=== PATIENT | male | born 1980 | race Caucasian/White ===

== ENCOUNTER → 2017-01-02 | Outpatient (CLI) | payer OTHER ==
--- NOTE | 2017-01-02 15:24 | CT ---
EXAMINATION TYPE: CT lumbar spine wo con DATE OF EXAM: 01/02/2017 COMPARISON: NONE HISTORY: left sided low back and leg pain CT DLP: 1044 mGycm Automated exposure control for dose reduction was used. FINDINGS: There are 5 lumbar-type vertebra identified. There is a additional transitional L6 type vertebra note d. Lumbar spine show straightening alignment without evidence of acute fracture or dislocation. Verte bral body heights are maintained. There is mild to moderate disc space narrowing most prominent anter iorly L4-L5 level. There is prominent posterior disc herniation L5- L6 level on sagittal images. Review of axial images shows the T12-L1, L1-L2, L2-L3, and L3-L4 levels to appear within normal limit s. Axial images at L4-L5 level show broad disc bulge mildly effacing anterior thecal sac on axial image 53, bilateral neural foramina are patent. Axial images at L5-L6 level show larger left paracentral disc protrusion effacing anterolateral theca l sac seen on axial images 61 through 64. Bilateral neural foramina are patent. Axial images at L6-S1 level are felt within normal limits. Distended bladder is present. Normal-appearing appendix is incidentally seen from cecum. IMPRESSION: SOME DEGENERATIVE CHANGE IN LOWER LUMBAR SPINE DETAILED ABOVE. MOST PROMINENT DISC HERNIATION L5- L6 LEVEL IS NOTED.
== END ==
LOC: RADCTMAIN 14:59
PROVIDERS: ATTEND Physical Medicine & Rehabilitation
DX: M51.16 Intervertebral disc disorders with radiculopathy, lumbar region (principal); M47.26 Other spondylosis with radiculopathy, lumbar region
CPT/HCPCS: 72131

== ENCOUNTER → 2017-01-03 | Outpatient (CLI) | payer OTHER ==
[2017-01-03 15:10] LABS: EKG EKG PERFORMED
--- NOTE | 2017-01-03 15:50 | XR ---
EXAMINATION TYPE: XR chest 2V DATE OF EXAM: 01/03/2017 COMPARISON: NONE HISTORY: Presurgical study. TECHNIQUE: Frontal and lateral views of the chest are obtained. FINDINGS: There is no focal air space opacity, pleural effusion, or pneumothorax seen. The cardiac silhouette size is within normal limits. The osseous structures are intact. IMPRESSION: No acute cardiopulmonary process.
[2017-01-03 15:52] LABS: Anion Gap 12 mmol/L; Blood Urea Nitrogen 16 mg/dL (9-20); Calcium 9.9 mg/dL (8.4-10.2); Carbon Dioxide 28 mmol/L (22-30); Chloride 100 mmol/L (98-107); Glucose 92 mg/dL (74-99); INR 1.1 (<1.2); Non-African American GFR(MDRD) >60 (>60 ml/min/1.73 sqM); Partial Thromboplastin Time 25.6 sec (22.0-30.0); Potassium 4.6 mmol/L (3.5-5.1); Prothrombin Time 10.7 sec (9.0-12.0); Sodium 140 mmol/L (137-145)
[2017-01-03 15:55] LABS: Basophils # (A) 0.1 k/uL (0-0.2); Basophils % (A) 1 %; CH 30.4; CHCM 34.3; Eosinophils # (A) 0.1 k/uL (0-0.7); Eosinophils % (A) 1 %; HCT 46.9 % (39.0-53.0); HDW 2.78; HGB 15.4 gm/dL (13.0-17.5); Luc # (Auto) 0.13; Luc % (Auto) 1; Lymphocytes # (A) 2.1 k/uL (1.0-4.8); Lymphocytes % (A) 23 %; MCH 29.2 pg (25.0-35.0); MCHC 32.8 g/dL (31.0-37.0); MCV 88.9 fL (80.0-100.0); Mean Platelet Volume 6.3; Monocytes # (A) 0.6 k/uL (0-1.0); Monocytes % (A) 6 %; Neutrophils # (A) 6.1 k/uL (1.3-7.7); Neutrophils % (A) 68 %; RBC 5.27 m/uL (4.30-5.90); RDW 12.8 % (11.5-15.5); WBC 9.1 k/uL (3.8-10.6); WBC (Perox) 9.71
[2017-01-03 15:59] LABS: Appearance,Urine Clear (Clear); Bilirubin,Urine Negative (Negative); Glucose,Urine (UA) Negative (Negative); Ketones,Urine Negative (Negative); Leukocyte Esterase,Urine Negative (Negative); Nitrite,Urine Negative (Negative); PH, Urine 6.5 (5.0-8.0); Protein,Urine Negative (Negative); Specific Gravity,Urine 1.008 (1.001-1.035); UA Billing (MACRO vs. MICRO) CHEM; Urobilinogen,Urine <2.0 mg/dL (<2.0)
== END | disposition home or self-care (01) ==
LOC: LABPAT 14:57
PROVIDERS: ATTEND Orthopaedic Surgery Orthopaedic Surgery of the Spine
DX: Z01.810 Encounter for preprocedural cardiovascular examination (principal); M51.26 Other intervertebral disc displacement, lumbar region; Z01.812 Encounter for preprocedural laboratory examination
CPT/HCPCS: 36415; 71020; 80048; 81003; 85025; 85610; 85730; 93005

== ENCOUNTER 2017-01-11 10:32 | Observation (INO) | payer OTHER ==
[2017-01-04 15:32] VITALS: BMI 31.8
[~2017-01-11 10:32] MED LIST: BACITRACIN 50,000 UNIT, POLYMYXIN B 500,000 UNIT in SODIUM CHLORIDE 0.9% IRRIGATIO 1,00... IRRIGATION ONE; LIDOCAINE 1% 20 ML VIAL (10MG/ML) FOR IV START INTRADERMA PRN; ONDANSETRON 4 MG/2 ML VIAL IVP ONE; SCOPOLAMINE 1.5MG/72HR PATCH TRANSDERM ONE; ceFAZolin 2 GM in SODIUM CHLORIDE 0.9% 100 ML IVPB ONE
[2017-01-11] MEDS: LACTATED RINGERS 1,000 ML IV SCH (11:50)
[2017-01-11] MEDS ORDERED: MIDAZOLAM 2 MG/2 ML VIAL IV ONE (11:54)
[2017-01-11] MEDS ORDERED: PROPOFOL 10 MG/ML 20 ML VIAL IV ONE (12:10)
[2017-01-11] MEDS ORDERED: LIDOCAINE 1% INJ 10MG/ML (20 ML MDV) SQ ONE (12:10)
[2017-01-11] MEDS ORDERED: SUCCINYLCHOLINE CHLORIDE VIAL 200 MG/10 ML VIAL IV ONE (12:10)
[2017-01-11] MEDS ORDERED: GLYCOPYRROLATE 0.2 MG/ML 2 ML VIAL ONE (12:10)
[2017-01-11] MEDS ORDERED: MIDAZOLAM 2 MG/2 ML VIAL ONE (12:10)
[2017-01-11] MEDS ORDERED: GELATIN SPONGE,ABSORB (LARGE) 1 EACH SPONGE TOPICAL ONE (12:10)
[2017-01-11] MEDS ORDERED: THROMBIN (BOVINE) 5,000 UNIT VIAL TOPICAL ONE (12:10)
[2017-01-11] MEDS ORDERED: fentaNYL (PF) 50 MCG/ML 2 ML AMP ONE (12:10)
[2017-01-11] MEDS ORDERED: LIDOCAINE 1% INJ 10MG/ML (20 ML MDV) ONE (12:10)
[2017-01-11] MEDS ORDERED: BUPIVACAINE (PF) 0.25% 30 ML VIAL SQ ONE (12:10)
[2017-01-11] MEDS ORDERED: methylPREDNISolone ACETATE 40 MG/ML 1 ML VIAL MISCELLANE ONE (12:10)
--- NOTE | 2017-01-11 13:04 | XR ---
EXAMINATION TYPE: XR lumbar spine 1V, FL guidance operating room DATE OF EXAM: 01/11/2017 CLINICAL HISTORY: Back pain and laminectomy TECHNIQUE: Fluoroscopy. COMPARISON: None. FINDINGS/IMPRESSION: Fluoroscopic guidance was provided during procedure performed by Dr. Ray. A total of 3 seconds of fluoroscopic time was utilized during the procedure and 1 spot images was acqui red demonstrating a surgical tool overlying the soft tissues of the lumbosacral spine.
[2017-01-11] MEDS ORDERED: LACTATED RINGERS 1,000 ML IV ONE (13:14)
--- NOTE | 2017-01-11 13:30 | P.OP ---
Date of Procedure: 01/11/17 Preoperative Diagnosis: L4 5 large herniated nucleus pulposis with left lower extremity radiculopathy and weakness Degenerative disc disease Postoperative Diagnosis: Same Anesthesia: GETA Pathology: none sent Condition: stable Disposition: PACU Description of Procedure: BRIEF OPERATIVE NOTE Preoperative Diagnosis: Large disc herniation L4 5, left lower extremity radiculopathy and weakness, degenerative disc disease Postoperative Diagnosis: Same Procedure: Laminectomy and decompression with partial facetectomy and foraminotomy L4 5 Discectomy for decompression L4 5 Surgeon: Dr. Uribe Electrical Continuity Tester: Evangelista PULIDO who is present throughout the entire the case persistence during positioning, dissection, exposure, visualization, and all crucial elements of the case as well as closure. Anesthesia: General anesthesia Estimated blood loss: Approximately 50 mL Complications: None apparent Components implanted: None Disposition: To recovery room in good stable condition. OPERATIVE INDICATIONS The patient has been having issues in their lower back and lower extremities. The patient was having severe pain with severe debility. He was unable to work on the unable to lay down in bed. He was sleeping sitting up in a chair and great difficulty with any walking more than a few steps. His found to have a massive disc herniation at L4 5 which correlated well with his pain. The disc herniation was seen on computed tomography scan she is unable to even lay down for an MRI. The patient was having worsening debility despite conservative treatment. The patient has been through conservative treatment. We discussed various treatment options including surgery, and the patient wishes to proceed with surgery We discussed the risk, patient's alternatives and benefits of surgery including but not limited to, risk of bleeding risk of infection, risk of need for further surgery, risk of decreased, loss of motion, loss of function , nerve damage, paralysis, heart attack, blindness and . OPERATIVE SUMMARY After discussing all the risks, patient alternatives and benefits at length, the patient elected to proceed with surgical intervention, signed informed consent, and presented for their procedure. The patient was seen and examined in the preoperative holding area and the surgical site was marked. The patient was given antibiotics and brought to the operating room. The patient was sedated and intubated by anesthesia in standard fashion. The patient was positioned on to the operating room table in a prone position on the appropriate frame which was well-padded and well molded. We were careful to pad any bony prominences and pressure points. We were careful to maintain the patient's cervical spine and good neutral alignment and position throughout. The patient was prepped and draped in a normal standard fashion. An appropriate timeout and keystone protocol performed. We were able to proceed with the surgery. Fluoroscopy was utilized to establish the appropriate level at L4 5. The local wound area was infiltrated with local anesthetic. An incision was made at the midline longitudinally over the appropriate levels at L4 5. Dissection was taken down subcutaneously to the level of the fascia which was split midline. Dissection was taken over the lamina. Intraoperative fluoroscopy was taken which showed a marker at the appropriate level. With the appropriate level positively confirmed, we were able to proceed with laminectomy. The wound was copiously irrigated and suctioned dry as had been done periodically throughout the case. I performed a laminectomy at L4 5 on the left with a combination of curettes and a high-speed bur and Kerrison rongeurs. A small medial facetectomy was performed again further access. A partial foraminotomy was also performed. Portions of the ligamentum flavum were taken down to expose the dura and traversing nerve root. I was able to mobilize the traversing nerve root and gain access to the disc space. Note was made of obvious compression from the disc. The disc herniation appeared to be quite large and causing severe distortion of the traversing nerve root and thecal sac. Protecting the soft tissue structures, a small annulotomy was established. I was able to perform discectomy and remove any extruded disc fragments and any loose fragments from within the disc itself. There was a massive extruded disc herniation which was removed giving excellent decompression from the disc. There are number of small fragments that were extruded that was removed as well. There is some significant disc desiccation noted. I tried to preserve the disc annulus that appeared stable. There were no further extruded fragments noted. There is no evidence of dural tear or leak. Good hemostasis maintained. The wound was copiously irrigated and suctioned dry. Good decompression and discectomy was noted. We were able to proceed with closure. The fascia was closed for a watertight closure. The subcuticular tissue was closed with absorbable suture. The wound was cleaned and dried and dressed with the appropriate dressing. The drapes were broken down. The patient was gently rolled back onto their hospital bed being careful to maintain their cervical spine and good neutral alignment and position. They were woken up by anesthesia, extubated, and brought to the recovery room in good stable condition. The patient will be admitted to the hospital for observation and for appropriate postoperative care, medical management and monitoring. We will continue to follow them closely about the postoperative course.
[2017-01-11] MEDS ORDERED: HYDROcodone/APAP 5-325MG 1 EACH TAB PO PRN ×2 (13:31)
[2017-01-11] MEDS ORDERED: DIAZEPAM 5 MG TAB PO PRN (13:31)
[2017-01-11] MEDS ORDERED: BENZOCAINE/MENTHOL LOZENG 1 EACH LOZENGE MUCOUS MEM PRN (13:31)
[2017-01-11] MEDS ORDERED: HYDROmorphone 0.5 MG/0.5 ML SYRINGE IVP PRN (13:31)
[2017-01-11] MEDS ORDERED: ONDANSETRON 4 MG/2 ML VIAL IVP ONE (14:00)
[2017-01-11] MEDS: HYDROmorphone 0.5 MG/0.5 ML SYRINGE IVP PRN ×4 (14:05→15:00)
[2017-01-11] MEDS: HYDROmorphone 1 MG/ML 1 ML SYRINGE IVP PRN ×2 (17:11→21:32)
[2017-01-11] MEDS: IBUPROFEN 800 MG TAB PO SCH ×2 (17:20→23:26)
[2017-01-11] MEDS: SODIUM CHLORIDE 0.9% 1,000 ML IV SCH (17:48)
[2017-01-11] MEDS: HYDROcodone/APAP 7.5-325MG 1 EACH TAB PO PRN (18:54)
[2017-01-11] MEDS: ceFAZolin 2 GM in SODIUM CHLORIDE 0.9% 100 ML IVPB SCH (20:18)
[2017-01-12] MEDS: HYDROcodone/APAP 7.5-325MG 1 EACH TAB PO PRN ×2 (00:02→05:16)
[2017-01-12] MEDS: HYDROmorphone 1 MG/ML 1 ML SYRINGE IVP PRN ×2 (01:37→07:02)
[2017-01-12] MEDS: SODIUM CHLORIDE 0.9% 1,000 ML IV SCH (05:15)
[2017-01-12] MEDS: ceFAZolin 2 GM in SODIUM CHLORIDE 0.9% 100 ML IVPB SCH (05:16)
[2017-01-12] MEDS: LACTATED RINGERS 1,000 ML IV SCH (05:16)
[2017-01-12] MEDS ORDERED: SENNOSIDES-DOCUSATE SODIUM 1 EACH TAB PO SCH (09:00)
[2017-01-12 09:05] VITALS: RESP 18; TEMP 98.1
[2017-01-12] MEDS: IBUPROFEN 800 MG TAB PO SCH (09:35)
--- NOTE | 2017-01-12 10:27 | P.DS ---
Providers Date of admission: 01/12/17 03:21 Attending physician: Yeny Uribe Primary care physician: Stated None Hospital Course: The patient presented on the day of admission as per his operative note. He underwent laminectomy and discectomy at L4 4 5 for a massive disc herniation. He feels that his legs are doing better. He is quite apprehensive about trying to mobilize or get out of bed. He did not try to get out of bed on his own last night. He says his pain is adequately controlled. Physical Exam The incision site is clean dry and intact. There is no erythema no drainage. There is no purulence no evidence of infection. There is no drainage at all on the dressing and the back appears clear Abdomen soft and nontender. Chest has good excursion with deep inspiration and expiration. The patient has active and passive range of motion intact at the upper and lower extremities. There is no acute change in neurologic status. His swelling at his lower extremities has diminished with him laying flat in bed overnight. He has good sustained dorsal flexion plantar flexion and extensor hallucis longus Hospital Course The patient has been very apprehensive about trying to move. Today at bedside with the assistance of the nursing staff we are able to get him up out of bed standing and walking over to sit in the chair. He is quite surprised that he was able to do this but he did this without too much trouble. He still remains apprehensive apprehensive about trying to mobilize but I think he will continue to increase the morning in the day. Once he is able to mobilize independently I think it is okay for him be discharged home today. He has been able to urinate on his own and he has been able to tolerate his regular diet and his pain is adequately controlled. The patient has been making slow progress postoperatively in terms of his mobility but I think that this will start to improve now that he has gotten out of bed. They have completed the prophylactic antibiotics without any signs or symptoms of infection. The patient has been able to advance their diet, and is tolerating diet adequately. The pain was initially controlled with IV medications and is now controlled appropriately with oral medications. The patient has been able to increase their mobilization. The patient has progressed appropriately. I think they are in good stable condition for discharge today if he is able to mobilize on his own. They will be sent home with appropriate prescriptions. I answered their questions to the best of my ability in a language that they can understand and they are agreeable with the plan. They will follow up as directed in approximately 2 weeks or sooner if he is having any problems. Patient Condition at Discharge: Fair Plan - Discharge Summary Discharge Rx Participant: Yes New Discharge Prescriptions: No Action HYDROcodone/APAP 7.5-325MG [[place] 7.5-325] 1 tab PO QID PRN PRN Reason: Pain Ibuprofen 800 mg PO TID Cyclobenzaprine [Flexeril] 10 mg PO DAILY PRN PRN Reason: Pain Discharge Medication List HYDROcodone/APAP 7.5-325MG [[place] 7.5-325] 1 tab PO QID PRN 01/04/17 [History] Ibuprofen 800 mg PO TID 01/04/17 [History] Cyclobenzaprine [Flexeril] 10 mg PO DAILY PRN 01/12/17 [History] Follow up Appointment(s)/Referral(s): Yeny Uribe DO [Doctor of Osteopathic Medicine] - 2 Weeks (With Evangelista Harley at Dr. Uribe's office) Activity/Diet/Wound Care/Special Instructions: Keep site clean. May shower with waterproof Tegaderm intact. Do not soak in a tub. On Monday May remove dressing and then may shower with area uncovered, the Steri -Strips intact and allow them to fray off on their own. May ambulate to tolerance. No repetitive bending twisting or lifting. No lifting greater than 20 pounds. No heavy or rigorous activity.
[2017-01-12 12:22] VITALS: BP 125/76; PULSE 103
== END 2017-01-12 13:20 | disposition home or self-care (01) ==
LOC: OR 10:32 → 3SUR 13:46 → OR 01-12 03:21 → 3SUR 01-12 03:21
PROVIDERS: ADMIT Orthopaedic Surgery Orthopaedic Surgery of the Spine; ATTEND Orthopaedic Surgery Orthopaedic Surgery of the Spine
DX: M51.16 Intervertebral disc disorders with radiculopathy, lumbar region (principal); Z79.1 Long term (current) use of non-steroidal anti-inflammatories (NSAID); Z79.891 Long term (current) use of opiate analgesic; Z79.899 Other long term (current) drug therapy
CPT/HCPCS: 63030; 97161; 86900; 86901; 86850; 72020; G0378; J2250; J0330; J1030; J0690 ×2; J2405; J2001; J3010; J1170 ×3; J2704

== ENCOUNTER 2018-07-15 15:38 | Emergency (ER) | payer OTHER ==
[2018-07-15 15:46] VITALS: BP 167/90; PULSE 79; RESP 18; TEMP 98.5
--- NOTE | 2018-07-15 16:06 | ED ---
General Adult HPI - General Chief complaint: Urogenital Stated complaint: Testical pain Time Seen by Provider: 07/15/18 15:50 Source: patient, RN notes reviewed Mode of arrival: ambulatory Limitations: no limitations - History of Present Illness Initial comments: 38-year-old male presents to the emergency department for scrotal pain times one day. Patient states he was riding a horse yesterday when the horse To a ditch and suddenly stopped. Patient states his testicles hit the horse very hard. Patient states she woke up this morning and noticed dark purple bruising to the scrotum. Presented to the emergency department at [place] where an ultrasound was recommended and was subsequently told to present to her here [facility] emergency department for the ultrasound. 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 Patient denies any significant pain with this. States it is somewhat tender to palpation but otherwise denies pain. Denies any difficulty urinating.Patient has no other complaints at this time including shortness of breath, chest pain, abdominal pain, nausea or vomiting, headache, or visual changes. - Related Data Home Medications Medication Instructions Recorded Confirmed Naproxen Sodium [Aleve] 220 mg PO Q12HR 07/15/18 07/15/18 Pregabalin [Lyrica] 50 mg PO TID 07/15/18 07/15/18 Allergies Allergy/AdvReac Type Severity Reaction Status Date / Time No Known Allergies Allergy Verified 07/15/18 16:16 Review of Systems ROS Statement: Those systems with pertinent positive or pertinent negative responses have been documented in the HPI. ROS Other: All systems not noted in ROS Statement are negative. Past Medical History Past Medical History: No Reported History Additional Past Medical History / Comment(s): BACK PAIN. History of Any Multi-Drug Resistant Organisms: None Reported Past Surgical History: Hernia Repair Additional Past Surgical History / Comment(s): UNDESCENDED TESTICLE SURGERY (AGE 14). Past Anesthesia/Blood Transfusion Reactions: No Reported Reaction Past Psychological History: No Psychological Hx Reported Smoking Status: Never smoker Past Alcohol Use History: Rare Past Drug Use History: None Reported - Past Family History Mother Family Medical History: No Reported History General Exam Limitations: no limitations General appearance: alert, in no apparent distress Head exam: Present: atraumatic, normocephalic, normal inspection Eye exam: Present: normal appearance, PERRL, EOMI. Absent: scleral icterus, conjunctival injection, periorbital swelling ENT exam: Present: normal exam, mucous membranes moist Neck exam: Present: normal inspection, full ROM. Absent: tenderness, meningismus, lymphadenopathy Respiratory exam: Present: normal lung sounds bilaterally. Absent: respiratory distress, wheezes, rales, rhonchi, stridor Cardiovascular Exam: Present: regular rate, normal rhythm, normal heart sounds. Absent: systolic murmur, diastolic murmur, rubs, gallop, clicks GI/Abdominal exam: Present: soft, normal bowel sounds. Absent: distended, tenderness, guarding, rebound, rigid exam: Present: scrotal swelling (mild edema with signfiicant ecchymosis noted of the scrotum circumferentially), other (Willie Rosenthal RN present for full exam). Absent: testicular tenderness (no signficant tenderness), urethral discharge, vertical testicular lie Neurological exam: Present: alert, oriented X3, CN II-XII intact Psychiatric exam: Present: normal affect, normal mood Course Vital Signs 07/15/18 15:42 Temperature 98.5 F Pulse Rate 79 Respiratory 18 Rate Blood Pressure 167/90 O2 Sat by Pulse 98 Oximetry Medical Decision Making - Medical Decision Making 38-year-old male presents for bruising to the scrotum after riding a horse. This started today. Patient was sent from another hospital for ultrasound. On exam patient doesn't ecchymosis noted of the scrotum. Patient has had his left testicle removed. No significant tenderness. Patient is not having any difficulty urinating. Urinalysis negative for blood or any other abnormalities. Ultrasound shows no evidence of testicular torsion or mass. No sign of testicular traumatic injury. The skin near the left scrotum is somewhat skin thickening consistent with bruising. left testicle removed. At this time patient can be treated outpatient. Discussed management including anti- inflammatories and keeping scrotum elevated discussed icing the area. Discussed following up with primary care in 1-2 days and returning here if he has any worsening symptoms including worsening swelling or difficulty urinating. - Lab Data Lab Results 07/15/18 Range/Units 15:59 Urine Color Light Yellow Urine Appearance Clear (Clear) Urine pH 6.0 (5.0-8.0) Ur Specific [place] 1.007 (1.001-1.035) Urine Protein Negative (Negative) Urine Glucose (UA) Negative (Negative) Urine Ketones Negative (Negative) Urine Blood Negative (Negative) Urine Nitrite Negative (Negative) Urine Bilirubin Negative (Negative) Urine Urobilinogen <2.0 (<2.0) mg/dL Ur Leukocyte Esterase Negative (Negative) Disposition Clinical Impression: Contusion of scrotum Disposition: HOME SELF-CARE Condition: Good Instructions (If sedation given, give patient instructions): Contusion in Adults (ED), Scrotal Pain (ED) Additional Instructions: Please take Tylenol for pain. Ice the scrotum for about 10 minutes every hour. Keep scrotum elevated by putting towels underneath. Follow-up with primary care tomorrow morning. Return here if you have any worsening symptoms including difficulty urinating. Is patient prescribed a controlled substance at d/c from ED?: No Referrals: Tyshawn Lucio PAC [Primary Care Provider] - 1-2 days Time of Disposition: 17:31
[2018-07-15 16:47] LABS: Appearance,Urine Clear (Clear); Bilirubin,Urine Negative (Negative); Blood,Urine Negative (Negative); Color,Urine Light Yellow; Glucose,Urine (UA) Negative (Negative); Ketones,Urine Negative (Negative); Leukocyte Esterase,Urine Negative (Negative); Nitrite,Urine Negative (Negative); Protein,Urine Negative (Negative); Specific Gravity,Urine 1.007 (1.001-1.035); Urobilinogen,Urine <2.0 mg/dL (<2.0)
--- NOTE | 2018-07-15 16:55 | US ---
EXAMINATION TYPE: US scrotum with doppler. Grayscale and color Doppler Duplex imaging performed of t logan scrotum. DATE OF EXAM: 07/15/2018 COMPARISON: NONE CLINICAL HISTORY: Pain. Pt states right testicle pain and bruising after getting hit in testicles in horse accident yesterday/ Left testicle removed as a child EXAM MEASUREMENTS: TESTICLES: Right Testicle: 4.5 x 2.5 x 4.6 cm EPIDIDYMIS HEAD: Right Epididymis: 1.2 cm Doppler performed to assess for testicular vascularity; good bilateral color flow and waveforms are s een. There is no evidence of testicular torsion. Presence of hydroceles: NO Presence of varicoceles: NO Possible skin thickening near left scrotum, otherwise no other abnormality visualized/ Left testicl e removed IMPRESSION: No evidence of testicular torsion or mass. No sign of testicular traumatic injury. Skin thickening consistent with bruising.
== END 2018-07-15 17:47 | disposition home or self-care (01) ==
LOC: EC 15:38
DX: S30.22XA Contusion of scrotum and testes, initial encounter (principal); Z79.1 Long term (current) use of non-steroidal anti-inflammatories (NSAID); Z79.899 Other long term (current) drug therapy; Z90.79 Acquired absence of other genital organ(s); W22.8XXA Striking against or struck by other objects, initial encounter
CPT/HCPCS: 76870; 81003; 93976; 99284

== ENCOUNTER 2020-11-27 20:16 | Inpatient (IN) | payer OTHER ==
[2020-11-27] MEDS ORDERED: SODIUM CHLORIDE 0.9% 1,000 ML IV STA (23:13)
[2020-11-27] MEDS ORDERED: SODIUM CHLORIDE 0.9% 500 ML 500 ML IV STA (23:13)
[2020-11-27] MEDS ORDERED: MORPHINE SULFATE 4 MG/ML SYRINGE IV STA (23:13)
[2020-11-27] MEDS ORDERED: VANCOMYCIN IV PER PHARMACY 1 EACH MISC MISCELLANE PRN (23:13)
[2020-11-27] MEDS ORDERED: NALOXONE 0.4 MG/ML 1 ML VIAL IV PRN (23:42)
[2020-11-27] MEDS ORDERED: ACETAMINOPHEN TAB 325 MG TAB PO PRN (23:42)
[2020-11-27] MEDS ORDERED: MORPHINE SULFATE 4 MG/ML SYRINGE IV PRN (23:42)
[2020-11-27] MEDS ORDERED: IBUPROFEN 400 MG TAB PO PRN (23:42)
[2020-11-27] MEDS ORDERED: ONDANSETRON 4 MG/2 ML VIAL IVP PRN (23:42)
--- NOTE | 2020-11-27 23:42 | ED ---
Extremity Problem HPI - General Chief complaint: Extremity Problem,Nontraumatic Stated complaint: Swollen right arm Time Seen by Provider: 11/27/20 21:40 Source: patient Mode of arrival: ambulatory - Related Data Home Medications Medication Instructions Recorded Confirmed Cyclobenzaprine [Flexeril] 5 mg PO BID PRN 11/27/20 11/27/20 Pregabalin 100 mg PO BID PRN 11/27/20 11/27/20 Sildenafil [Revatio] 20 mg PO DAILY PRN 11/27/20 11/27/20 Sulfamethox-Tmp 800-160Mg [Bactrim 1 tab PO BID 11/27/20 11/27/20 DS 800-160 mg] Allergies Allergy/AdvReac Type Severity Reaction Status Date / Time No Known Allergies Allergy Verified 11/27/20 22:12 Review of Systems ROS Statement: Those systems with pertinent positive or pertinent negative responses have been documented in the HPI. ROS Other: All systems not noted in ROS Statement are negative. Past Medical History Past Medical History: No Reported History Additional Past Medical History / Comment(s): BACK PAIN. History of Any Multi-Drug Resistant Organisms: None Reported Past Surgical History: Hernia Repair Additional Past Surgical History / Comment(s): UNDESCENDED TESTICLE SURGERY (AGE 14). Past Anesthesia/Blood Transfusion Reactions: No Reported Reaction Past Psychological History: No Psychological Hx Reported Smoking Status: Never smoker Past Alcohol Use History: Rare Past Drug Use History: None Reported - Past Family History Mother Family Medical History: No Reported History Course Vital Signs 11/27/20 21:16 Temperature 98.2 F Pulse Rate 81 Respiratory 19 Rate Blood Pressure 151/90 O2 Sat by Pulse 97 Oximetry Disposition Clinical Impression: Septic olecranon bursitis of right elbow, Failure of outpatient treatment Disposition: ADMITTED IP TO THIS HOSP Condition: Good Is patient prescribed a controlled substance at d/c from ED?: No Referrals: Ayde Jones MD [Primary Care Provider] - 1-2 days
[2020-11-28] MEDS ORDERED: VANCOMYCIN 1,750 MG in SODIUM CHLORIDE 0.9% 500 ML 500 ML IVPB ONE ×2
[2020-11-28 00:35] LABS: Basophils # (A) 0.1 k/uL (0-0.2); Basophils % (A) 1 %; Eosinophils # (A) 0.1 k/uL (0-0.7); Eosinophils % (A) 1 %; HCT 45.9 % (39.0-53.0); HGB 15.5 gm/dL (13.0-17.5); Lymphocytes # (A) 1.6 k/uL (1.0-4.8); Lymphocytes % (A) 13 %; MCH 29.2 pg (25.0-35.0); MCHC 33.8 g/dL (31.0-37.0); MCV 86.3 fL (80.0-100.0); Mean Platelet Volume 7.3; Monocytes # (A) 0.6 k/uL (0-1.0); Monocytes % (A) 5 %; Neutrophils # (A) 9.8 k/uL (1.3-7.7); Neutrophils % (A) 78 %; Platelet Count 324 k/uL (150-450); RBC 5.32 m/uL (4.30-5.90); RDW 13.2 % (11.5-15.5); WBC 12.5 k/uL (3.8-10.6)
[2020-11-28 00:41] LABS: INR 0.9 (<1.2); Prothrombin Time 10.1 sec (9.0-12.0)
[2020-11-28 01:16] LABS: ALT 61 U/L (4-49); AST 37 U/L (17-59); African American GFR (CKD) >90 (>60 ml/min/1.73 sqM); Albumin 4.7 g/dL (3.5-5.0); Alkaline Phosphatase 116 U/L (38-126); Anion Gap 11 mmol/L; Blood Urea Nitrogen 8 mg/dL (9-20); Calcium 9.9 mg/dL (8.4-10.2); Carbon Dioxide 26 mmol/L (22-30); Chloride 102 mmol/L (98-107); Glucose 112 mg/dL (74-99); Non-African American GFR(CKD) >90 (>60 ml/min/1.73 sqM); Phosphorus 4.1 mg/dL (2.5-4.5); Potassium 4.5 mmol/L (3.5-5.1); Sodium 139 mmol/L (137-145); Total Bilirubin 0.6 mg/dL (0.2-1.3); Total Protein 7.5 g/dL (6.3-8.2)
[2020-11-28] MEDS: SODIUM CHLORIDE 0.9% 1,000 ML IV SCH ×3 (02:00→17:05)
--- NOTE | 2020-11-28 10:24 | P.CNOR ---
History of Present Illness - [facility] Consult date: 11/28/20 History of present illness: The patient is a 40-year-old male who presented to the emergency department yesterday for evaluation of his right elbow. He was seen 2 days ago in our office by Koki An PA-C for the same elbow. She advised the patient to be admitted to the hospital for IV antibiotic therapy but the patient declined at that time. He was placed on Bactrim and encouraged to apply warm compresses. The elbow continued to worsen and he went to the emergency department yesterday. He denies fever, chills and feels well overall. The ER physician opened the elbow late last night and the patient states that a lot of drainage was expressed. The patient states that the elbow pain is much improved since the drainage and his right hand swelling has also improved. He states he has slight pain upon movement of his fingers but that is much improved since yesterday. The patient is currently on Rocephin and vancomycin. Review of Systems Constitutional: Reports fatigue, Denies chills, Denies fever Cardiovascular: Denies chest pain, Denies shortness of breath Respiratory: Denies cough Gastrointestinal: Denies diarrhea, Denies nausea, Denies vomiting Musculoskeletal: right: elbow pain, elbow stiffness, elbow swelling Past Medical History Past Medical History: No Reported History Additional Past Medical History / Comment(s): BACK PAIN, back surgery 2017 hernia 2010 History of Any Multi-Drug Resistant Organisms: None Reported Past Surgical History: Hernia Repair Additional Past Surgical History / Comment(s): UNDESCENDED TESTICLE SURGERY (AGE 14). Past Anesthesia/Blood Transfusion Reactions: No Reported Reaction Past Psychological History: No Psychological Hx Reported Smoking Status: Never smoker Past Alcohol Use History: Rare Past Drug Use History: None Reported - Past Family History Mother Family Medical History: No Reported History Medications and Allergies Home Medications Medication Instructions Recorded Confirmed Type Cyclobenzaprine [Flexeril] 5 mg PO BID PRN 11/27/20 11/27/20 History Pregabalin 100 mg PO BID PRN 11/27/20 11/27/20 History Sildenafil [Revatio] 20 mg PO DAILY PRN 11/27/20 11/27/20 History Sulfamethox-Tmp 800-160Mg [Bactrim 1 tab PO BID 11/27/20 11/27/20 History DS 800-160 mg] Allergies Allergy/AdvReac Type Severity Reaction Status Date / Time No Known Allergies Allergy Verified 11/27/20 22:12 Physical Examination The patient is a 40-year-old male who is in no acute distress. He is alert and oriented 3. Upon exam of the right elbow, a dressing was removed which had a moderate amount of serosanguineous drainage striking through the dressing. There is a small incision directly over the olecranon bursa. No active drainage and I was unable to express much fluid out of the bursa at this time. There is a golf ball size swelling to the bursa, the patient states that that is much improved since yesterday. There is no surrounding redness or warmth. There is no proximal red streaking present. No obvious purulence noted. Forearm and upper arm are soft and nontender. He is able to move his elbow without difficulty and pain. No numbness is present. Circulatory status is intact. Results - Labs Labs: Abnormal Lab Results - Last 24 Hours (Table) 11/27/20 11/27/20 Range/Units 23:55 23:55 WBC 12.5 H (3.8-10.6) k/uL Neutrophils # 9.8 H (1.3-7.7) k/uL BUN 8 L (9-20) mg/dL Glucose 112 H (74-99) mg/dL ALT 61 H (4-49) U/L H & H 11/27/20 Range/Units 23:55 Hgb 15.5 (13.0-17.5) gm/dL Hct 45.9 (39.0-53.0) % Coagulation 11/27/20 Range/Units 23:55 INR 0.9 (<1.2) Result Diagrams: 11/27/20 23:55 11/27/20 23:55 Assessment and Plan (1) Failure of outpatient treatment Current Visit: Yes Status: Acute Code(s): Z78.9 - OTHER SPECIFIED HEALTH ST ATUS SNOMED Code(s): 608137036 (2) Septic olecranon bursitis of right elbow Current Visit: Yes Status: Acute Code(s): M71.121 - OTHER INFECTIVE BURSITIS, RIGHT ELBOW SNOMED Code(s): 3548892607367138 Plan: The clinical findings were discussed with the patient. The case was discussed at length with Dr. Herberth Weinstein. No surgical intervention is planned at this time. The patient was advised to stay for one more day for IV antibiotic therapy. He would like to leave today but he understands that he should stay an other day. Continue IV Rocephin and Vanco at this time. Continue local wound and he may shower over the elbow without the dressing. Keep dressing clean and dry. Apply warm compresses. We will continue to follow the patient closely.
[2020-11-28 11:59] LABS: Basophils # (A) 0.1 k/uL (0-0.2); Basophils % (A) 1 %; Eosinophils # (A) 0.1 k/uL (0-0.7); Eosinophils % (A) 1 %; HCT 41.7 % (39.0-53.0); HGB 14.5 gm/dL (13.0-17.5); Lymphocytes # (A) 1.1 k/uL (1.0-4.8); Lymphocytes % (A) 15 %; MCH 30.4 pg (25.0-35.0); MCHC 34.8 g/dL (31.0-37.0); MCV 87.2 fL (80.0-100.0); Mean Platelet Volume 7.2; Monocytes # (A) 0.4 k/uL (0-1.0); Monocytes % (A) 5 %; Neutrophils # (A) 5.9 k/uL (1.3-7.7); Neutrophils % (A) 75 %; Platelet Count 307 k/uL (150-450); RBC 4.78 m/uL (4.30-5.90); RDW 13.2 % (11.5-15.5); WBC 7.8 k/uL (3.8-10.6)
[2020-11-28 12:24] LABS: African American GFR (CKD) >90 (>60 ml/min/1.73 sqM); Anion Gap 11 mmol/L; Blood Urea Nitrogen 9 mg/dL (9-20); Calcium 9.8 mg/dL (8.4-10.2); Carbon Dioxide 26 mmol/L (22-30); Chloride 103 mmol/L (98-107); Glucose 104 mg/dL (74-99); Non-African American GFR(CKD) >90 (>60 ml/min/1.73 sqM); Potassium 4.3 mmol/L (3.5-5.1); Sodium 140 mmol/L (137-145)
[2020-11-28] MEDS: VANCOMYCIN 1,750 MG in SODIUM CHLORIDE 0.9% 500 ML 500 ML IVPB SCH (13:54)
[2020-11-28 21:46] VITALS: RESP 18
[2020-11-29] MEDS: SODIUM CHLORIDE 0.9% 1,000 ML IV SCH ×2 (01:41→07:02)
[2020-11-29] MEDS: VANCOMYCIN 1,750 MG in SODIUM CHLORIDE 0.9% 500 ML 500 ML IVPB SCH (02:40)
[2020-11-29 08:01] VITALS: BP 127/88; PULSE 69; TEMP 97.8
--- NOTE | 2020-11-29 08:45 | P.PN ---
Subjective Progress Note Date: 11/29/20 Principal diagnosis: Right septic olecranon bursitis The patient is a 40-year-old male who presented to the emergency department 2 days ago for evaluation of his right elbow. He was seen 2 days ago in our office by Koki An PA-C for the same elbow. She advised the patient to be admitted to the hospital for IV antibiotic therapy but the patient declined at that time. He was placed on Bactrim and encouraged to apply warm compresses. The elbow continued to worsen and he went to the emergency department yesterday. He denies fever, chills and feels well overall. The ER physician opened the elbow late last night and the patient states that a lot of drainage was exp ressed. The patient states that the elbow pain is much improved since the drainage and his right hand swelling has also improved. He states he has slight pain upon movement of his fingers but that is much improved since yesterday. The patient is currently on Rocephin and vancomycin. Today, the patient continues to feel well. The elbow swelling and pain are much better since admission. No new complaints today. He would like to go home today. Objective - Vital Signs Vital signs: Vital Signs Temp 97.8 F 11/29/20 08:00 Pulse 69 11/29/20 08:00 Resp 18 11/29/20 08:00 BP 127/88 11/29/20 08:00 Pulse Ox 97 11/29/20 08:00 Intake & Output 11/28/20 11/29/20 11/29/20 18:59 06:59 18:59 Intake Total 2610 Balance 2610 Intake: Intake, IV Titration 2110 Amount Sodium Chloride 0.9% 1, 1560 000 ml @ 130 mls/hr IV . Q7H42M [facility] Rx#:[id number] Vancomycin 1,750 mg In 500 Sodium Chloride 0.9% 500 ml 500 ml @ 167 mls/hr IVPB Q12H [facility] Rx#: [id number] cefTRIAXone 1 gm In 50 Sodium Chloride 0.9% 50 ml @ 100 mls/hr IVPB Q12H [facility] Rx#:[id number] Oral 500 Other: # Voids 3 2 - Exam The patient is a 40-year-old male who is in no acute distress. He is alert and oriented 3. Upon exam of the right elbow, a dressing was removed without drainage due to the dressing just being changed recently. There is a small incision directly over the olecranon bursa. No active drainage and I was unable to express much fluid out of the bursa at this time. There is improved swelling to the bursa, the patient states that that is much improved since yesterday. There is no surrounding redness or warmth. There is no proximal red streaking present. No obvious purulence noted. Forearm and upper arm are soft and nontender. He is able to move his elbow without difficulty and pain. No numbness is present. Circulatory status is intact. - Labs CBC & Chem 7: 11/28/20 11:01 11/28/20 11:01 Labs: Abnormal Lab Results - Last 24 Hours (Table) 11/28/20 Range/Units 11:01 Glucose 104 H (74-99) mg/dL Microbiology - Last 24 Hours (Table) 11/27/20 23:55 Blood Culture - Preliminary Blood No Growth after 24 hours Assessment and Plan (1) Failure of outpatient treatment Current Visit: Yes Status: Acute Code(s): Z78.9 - OTHER SPECIFIED HEALTH STATUS SNOMED Code(s): 959243767 (2) Septic olecranon bursitis of right elbow Current Visit: Yes Status: Acute Code(s): M71.121 - OTHER INFECTIVE BURSITIS, RIGHT ELBOW SNOMED Code(s): 4970247315762310 Plan: The clinical findings were discussed with the patient. The case was discussed at length with Dr. eHrberth Weinstein. No surgical intervention is planned at this time. The patient may be discharged today if cleared by internal medicine. Continue local wound and he may shower over the elbow without the dressing. Keep dressing clean and dry. Apply warm compresses. He will follow up with Dr. Herberth Weinstein on Monday this week but will call the office if develops any changes in his condition and he will be seen sooner.
--- NOTE | 2020-11-29 09:28 | P.HPIM ---
History of Present Illness H&P Date: 11/28/20 Chief Complaint: Pain and swelling right arm/elbow 40-year-old male who presented to the emergency department yesterday for evaluation of his right elbow. He was seen 2 days ago by orthopedic surgery in the outpatient setting for the same elbow, at which time patient was advised to be admitted to the hospital for IV antibiotic therapy but the patient declined at that time. He was placed on Bactrim and encouraged to apply warm compresses. The elbow continued to worsen and he went to the emergency department yesterday. He denies fever, chills and feels well overall. The ER physician opened the elbow late last night and the patient states that a lot of drainage was expressed. The patient states that the elbow pain is much improved since the drainage and his right hand swelling has also improved. He states he has slight pain upon movement of his fingers but that is much improved since yesterday. The patient is currently on Rocephin and vancomycin. Review of Systems REVIEW OF SYSTEMS: CONSTITUTIONAL: No fever, no malaise, no fatigue. HEENT: No recent visual problems or hearing problems. Denied any sore throat. CARDIOVASCULAR: No chest pain, orthopnea, PND, no palpitations, no syncope. PULMONARY: No shortness of breath, no cough, no hemoptysis. GASTROINTESTINAL: No diarrhea, no nausea, no vomiting, no abdominal pain. NEUROLOGICAL: No headaches, no weakness, no numbness. HEMATOLOGICAL: Denies any bleeding or petechiae. GENITOURINARY: Denies any burning micturition, frequency, or urgency. MUSCULOSKELETAL/RHEUMATOLOGICAL: Pain and swelling and redness right elbow ENDOCRINE: Denies any polyuria or polydipsia. The rest of the 14-point review of systems is negative. Past Medical History Past Medical History: No Reported History Additional Past Medical History / Comment(s): BACK PAIN, back surgery 2017 hernia 2010 History of Any Multi-Drug Resistant Organisms: None Reported Past Surgical History: Hernia Repair Additional Past Surgical History / Comment(s): UNDESCENDED TESTICLE SURGERY (AGE 14). Past Anesthesia/Blood Transfusion Reactions: No Reported Reaction Past Psychological History: No Psychological Hx Reported Smoking Status: Never smoker Past Alcohol Use History: Rare Past Drug Use History: None Reported - Past Family History Mother Family Medical History: No Reported History Medications and Allergies Home Medications Medication Instructions Recorded Confirmed Type Cyclobenzaprine [Flexeril] 5 mg PO BID PRN 11/27/20 11/27/20 History Pregabalin 100 mg PO BID PRN 11/27/20 11/27/20 History Sildenafil [Revatio] 20 mg PO DAILY PRN 11/27/20 11/27/20 History Sulfamethox-Tmp 800-160Mg [Bactrim 1 tab PO BID 11/27/20 11/27/20 History DS 800-160 mg] Sulfamethox-Tmp 800-160Mg [Bactrim 1 tab PO Q12HR #20 tab 11/29/20 Rx DS 800-160 mg] Allergies Allergy/AdvReac Type Severity Reaction Status Date / Time No Known Allergies Allergy Verified 11/27/20 22:12 Physical Exam Vitals: Vital Signs Temp Pulse Pulse Pulse Resp BP BP 11/28/20 08:00 74 18 11/28/20 07:19 97.6 F 74 18 123/78 11/28/20 02:00 98.2 F 85 18 149/87 11/28/20 00:30 98.2 F 85 18 150/88 11/27/20 21:16 98.2 F 81 19 151/90 Pulse Ox 11/28/20 08:00 11/28/20 07:19 97 11/28/20 02:00 97 11/28/20 00:30 97 11/27/20 21:16 97 Intake and Output 11/27/20 11/28/20 11/28/20 22:59 06:59 14:59 Intake Total 1280 Balance 1280 Intake: Intake, IV Titration 1280 Amount Sodium Chloride 0.9% 1, 780 000 ml @ 130 mls/hr IV . Q7H42M [facility] Rx#:[id number] Vancomycin 1,750 mg In 500 Sodium Chloride 0.9% 500 ml 500 ml @ 167 mls/hr IVPB Q12H [facility] Rx#: [id number] Other: # Voids 2 Weight 108.862 kg 108.862 kg - Constitutional General appearance: Present: average body habitus, cooperative, no acute distress - EENT Eyes: Present: anicteric sclerae, EOMI, PERRLA, normal appearance ENT: Present: hearing grossly normal, normal oropharynx Ears: bilateral: normal - Neck Neck: Present: normal ROM. Absent: lymphadenopathy, rigidity, thyromegaly Carotids: negative: bruit present Thyroid: bilateral: normal size, negative: enlarged, nodule - Respiratory Respiratory: bilateral: CTA, negative: rales, rhonchi, wheezing - Cardiovascular Rhythm: regular Heart sounds: normal: S1, S2 Abnormal Heart Sounds: Absent: systolic murmur, diastolic murmur - Gastrointestinal General gastrointestinal: Present: normal bowel sounds, soft. Absent: distended, organomegaly, tenderness - Genitourinary Genitourinary Comment(s): deferred - Integumentary Integumentary: Present: normal turgor. Absent: jaundiced, rash, ulcer - Neurologic Neurologic: Present: CNII-XII intact. Absent: focal deficits - Musculoskeletal Musculoskeletal: Present: gait normal, strength equal bilaterally - Psychiatric Psychiatric: Present: A&O x's 3, appropriate affect, intact judgment & insight Results CBC & Chem 7: 11/28/20 11:01 11/28/20 11:01 Labs: Abnormal Lab Results - Last 24 Hours (Table) 11/27/20 11/27/20 Range/Units 23:55 23:55 WBC 12.5 H (3.8-10.6) k/uL Neutrophils # 9.8 H (1.3-7.7) k/uL BUN 8 L (9-20) mg/dL Glucose 112 H (74-99) mg/dL ALT 61 H (4-49) U/L Assessment and Plan Assessment: 1. Septic olecranon bursitis of right elbow/failed outpatient treatment - Patient remains on IV antibiotics in form of Rocephin and IV vancomycin; orthopedic surgery on board and no surgical intervention is recommended at this time; patient reports marked improvement in symptoms and is requesting to be discharged - Orthopedic recommending to continue IV antibiotics for another 24 hours - Continue with local wound care; patient is cleared for showers without elbow dressing; apply warm compresses; dry dressing 2. Uncontrolled hypertension; patient has no history of hypertension and currently not on any therapy; we will monitor blood pressure closely and make final recommendations prior to discharge 3. Chronic back pain; patient remains on Flexeril 5 mg by mouth twice a day when necessary along with Lyrica 100 mg twice a day when necessary 4. Obesity; counseling done DVT prophylaxis; SCDs CODE STATUS; full code
== END 2020-11-29 13:23 | disposition home or self-care (01) | DRG 558 ==
LOC: EC 20:16 → 4SSUR 23:42
PROVIDERS: ADMIT Hospitalist; ATTEND Hospitalist
DX: M71.121 Other infective bursitis, right elbow (principal); I10 Essential (primary) hypertension; G89.29 Other chronic pain; E66.9 Obesity, unspecified; Z68.32 Body mass index [BMI] 32.0-32.9, adult; Z71.3 Dietary counseling and surveillance; Z79.899 Other long term (current) drug therapy; Z20.822 Contact with and (suspected) exposure to COVID-19
CPT/HCPCS: 80048; 80053; 83605; 83735; 84100; 85025; 85610; 85730; 87040; 87635; 99284

== ENCOUNTER 2022-01-02 09:52 | Emergency (ER) | payer OTHER ==
[2022-01-02 09:56] VITALS: TEMP 97.5
--- NOTE | 2022-01-02 10:54 | XR ---
EXAMINATION TYPE: XR elbow complete RT DATE OF EXAM: 01/02/2022 CLINICAL HISTORY: Bursitis. Pain and swelling. TECHNIQUE: Frontal, lateral and oblique images of the right elbow are obtained. COMPARISON: None FINDINGS: There is no acute fracture/dislocation evident in the right elbow. No abnormal fat pad si gns are seen. Large spur from the olecranon with adjacent round ossific density could reflect calcifi cation along distal triceps tendon or product of old injury/fracture spur. Overlying soft tissues are unremarkable. IMPRESSION: As above.
--- NOTE | 2022-01-02 11:03 | ED ---
General Adult HPI - General Chief complaint: Extremity Problem,Nontraumatic Stated complaint: RT elbow pain Time Seen by Provider: 01/02/22 10:01 Source: patient, RN notes reviewed, old records reviewed Mode of arrival: ambulatory Limitations: no limitations - History of Present Illness Initial comments: This is a 41-year-old male presents emergency Department complaining about some swelling on his right elbow. Patient states in the past she's had a septic bursitis and this is not nearly as bad but he wanted To really say came in to be evaluated. Patient denies any fever chills patient denies any redness. Patient states it does hurt but is not anywhere near as significant as was last time. Patient is full range of motion of the elbow - Related Data Home Medications Medication Instructions Recorded Confirmed Cyclobenzaprine [Flexeril] 5 mg PO BID PRN 11/27/20 11/27/20 Pregabalin 100 mg PO BID PRN 11/27/20 11/27/20 Sildenafil [Revatio] 20 mg PO DAILY PRN 11/27/20 11/27/20 Sulfamethox-Tmp 800-160Mg [Bactrim 1 tab PO BID 11/27/20 11/27/20 DS 800-160 mg] Previous Rx's Medication Instructions Recorded Ibuprofen [Motrin] 400 mg PO Q6HR PRN tab 11/29/20 Sulfamethox-Tmp 800-160Mg [Bactrim 1 tab PO Q12HR #20 tab 11/29/20 DS 800-160 mg] Sulfamethox-Tmp 800-160Mg [Bactrim 1 each PO Q12HR #20 tab 01/02/22 DS 800-160 mg] Allergies Allergy/AdvReac Type Severity Reaction Status Date / Time No Known Allergies Allergy Verified 01/02/22 09:56 Review of Systems ROS Statement: Those systems with pertinent positive or pertinent negative responses have been documented in the HPI. ROS Other: All systems not noted in ROS Statement are negative. Past Medical History Past Medical History: No Reported History Additional Past Medical History / Comment(s): BACK PAIN. History of Any Multi-Drug Resistant Organisms: MRSA Date of last positivie culture/infection: Right elbow, 2020 Past Surgical History: Hernia Repair Additional Past Surgical History / Comment(s): UNDESCENDED TESTICLE SURGERY (AGE 14). Past Anesthesia/Blood Transfusion Reactions: No Reported Reaction Past Psychological History: No Psychological Hx Reported Smoking Status: Never smoker Past Alcohol Use History: Rare Past Drug Use History: None Reported - Past Family History Mother Family Medical History: No Reported History General Exam - General Exam Comments Initial Comments: GENERAL Patient is well-developed and well-nourished. Patient is in mild distress. EYES Patient's pupils are equal and round. Extraocular motion is intact SKIN Unremarkable NEURO The patient is alert and oriented 3 PYSCH Patient has normal interpersonal interactions. MUSCULOSKELETAL Patient's right elbow has a little swelling but it doesn't appear at all fluctuant red or warm. Limitations: no limitations Course Vital Signs 01/02/22 09:54 Temperature 97.5 F L Pulse Rate 60 Respiratory 20 Rate Blood Pressure 121/82 O2 Sat by Pulse 99 Oximetry Disposition Clinical Impression: Olecranon bursitis Disposition: HOME SELF-CARE Condition: Good Instructions (If sedation given, give patient instructions): Elbow Bursitis (ED) Prescriptions: Sulfamethox-Tmp 800-160Mg [Bactrim DS 800-160 mg] 1 each PO Q12HR #20 tab Is patient prescribed a controlled substance at d/c from ED?: No Referrals: Yeny Uribe DO [Doctor of Osteopathic Medicine] - 1-2 days Time of Disposition: 11:02
[2022-01-02 11:14] VITALS: BP 107/89; PULSE 67; RESP 16
== END 2022-01-02 11:13 | disposition home or self-care (01) ==
LOC: EC 09:52
DX: M70.21 Olecranon bursitis, right elbow (principal)
CPT/HCPCS: 99283